=== PATIENT | male | born 2005 | race Two or more races ===

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

== ENCOUNTER 2025-01-18 11:26 | Emergency (ER) | payer OTHER, SELFPAY ==
[2025-01-18 11:27] VITALS: BMI 28.5
[2025-01-18 11:49] VITALS: BP 124/66; PULSE 88; RESP 18; TEMP 36.8; O2SAT 100
--- NOTE | 2025-01-18 12:17 | EDNOTE_ITS ---
<Statement entered by Milagro Rahman MD - 01/18/25 17:56> As co-signing physician, I was present and available for consult prn. I concur with the plan and care as documented by the midlevel provider. ED General RME/HPI General Chief complaint: Ankle/Foot Injury Stated complaint: THORN STUCK IN LEFT FOOT x 2 MONTH Time Seen by Provider: 01/18/25 12:16 Arrival date/time: 01/18/25 11:26 CC: A pulm foreign in the left foot HPI approximately 2 months ago initially thought it went away , but then returned is now tender in the area. The location is overlying the joint of the distal fifth metatarsal. Denies fever chills chest pain shortness of breath or difficulty breathing. Related Data Previous Rx's ?Medication ?Instructions ?Recorded cephalexin 500 mg capsule 500 mg PO BID #14 caps 01/18 Allergies Allergy/AdvReac Type Severity Reaction Status Date / Time No Known Allergies Allergy Verified 01/18/25 11:29 Review of Systems Review of Systems Narrative Review of Systems: GEN: No fever, no chills, no weight loss EYES: No discharge, no visual changes, no pain HEENT: No ear pain, no congestion, no sore throat PULM: No shortness of breath, no cough, no congestion CV: No chest pain, no dyspnea on exertion, no palpitations GI: No nausea, no vomiting, no diarrhea, no pain, no constipation : No frequency, no urgency, no dysuria MUSC/SKEL: No joint pain, no back pain SKIN: No rash PSYCH: No hallucinations, no depression HEME/LYMPH: No easy bleeding or bruising tendencies NEURO: No weakness, no headache Past Medical History Past Medical History CARDIAC: Negative Congestive Heart Failure RESPIRATORY: Negative Chronic Obstructive Pulmonary Disease (COPD) GENITOURINARY: Negative Renal Disease ENDOCRINE: Negative Diabetes Mellitus Type 1 or Diabetes Mellitus Type 2 Social History SMOKING STATUS: Never smoker ED Exam Narrative Physical exam: [General: In mild discomfort but not in any acute distress Head normocephalic HEENT: Within acceptable limits Neck is supple nontender Chest equal chest rise nontender to palpation Respiratory: Clear to auscultation no wheezes crackles or rubs CV: Rate rhythm is regular no murmurs rubs or clicks Abdomen is soft nontender no masses positive bowel sounds all 4 quadrants Back: No CVA tenderness no spinous process tenderness from cervical spine thorac ic and lumbar spine Skin: 1 cm linear bulging over the distal metatarsal of the fifth digit. No surrounding erythema edema not warm to touch mildly fluctuant. Otherwise skin is intact no petechiae rash induration ulceration or crepitus Extremities: Moving all extremity against resistance cap refill less than 2 seconds neurosensory intact Neuro: Awake alert oriented x3 Glascow coma 15 no focal deficits] Course Quality Measures none Orders Category Date Time Status Set Up Suture Tray STAT Care 01/18/25 11:49 Active Wound Care NOW Care 01/18/25 11:49 Active Lidocaine 1% 20 ml [Xylocaine 1% 20 ML] Med 01/18/25 11:49 Discontinued 20 ml INFL X1 ONE PROCEDURES: Procedure Comment Foreign body removal, anesthesia 1% lidocaine without epi, 1 mL injected to the local site site was then opened with 1/2 cm full-thickness left incision using a #11 scalpel. Then with initial probing with forceps the thorn was identified and removed without complication site that was drained of a small amount of exudate and blood. Bulky dressing was applied patient tolerated the procedure well. Discharge Plan Plan Patient Disposition: HOME (Self Care) Patient condition on transfer: Stable Prescriptions/Referrals Prescriptions/Med Rec: New cephalexin 500 mg capsule 500 mg PO BID Qty: 14 0RF Referrals: Navneet Mota MD [Physician, Family Practice] - In 1 week Problem List Clinical Impression: Foreign body in foot Patient/Caregiver Discharge Instructions Other Activity Instructions:: Keep the site clean and dry change the dressing once a day if it gets sweaty change the sock make sure you wear white socks for the next 5 days take the medications as prescribed if there is a worsening of symptoms include redness pus or swelling return to the emergency room for reevaluation. Education Materials: ED Foreign Body Soft Tissue Removed Print Language: [place] Stand Alone Forms: Caterina Award Info., Patient Portal Info Letter, Work/School Release ASAF/GRACE Supervising Physician ASAF/GRACE Supervising Physician: Kris Viera ENP [facility] Clinical Information Provided by: patient Medical Records reviewed [facility] Meds/Rx considered, not ordered None Labs/Rad/Tests considered, not ordered None Chronic Illness/Social Conditions which may negatively complicate care or outcome(s)-explain: None or not applicable EKG EKG not done Labs Labs: none Imaging Imaging interpretation: none Medication Administration(s) Medication Administration History Discontinued Medications Lidocaine HCl (Lidocaine Hcl 1% 20 Ml Vial) 20 ml INFL X1 ONE Stop: 01/18/25 11:50 None Diagnosis Differential Diagnosis ED Complaint MDM: Foot cellulitis foot abscess foreign body in the foot
[2025-01-18] MEDS: LIDOCAINE HCL 1% 20 ML VIAL INFL (12:38)
== END 2025-01-18 12:53 | disposition home or self-care (01) ==
LOC: SERX 12:45
PROVIDERS: Emergency Provider Registered Nurse General Practice; PCP Pediatrics
DX: S91.342A Puncture wound with foreign body, left foot, initial encounter (principal); W45.8XXA Other foreign body or object entering through skin, initial encounter
CPT/HCPCS: 10121; 99281; J3490